=== PATIENT | female | born 1960 | race Caucasian/White ===

== ENCOUNTER 2019-01-21 13:42 | Emergency (ER) | payer MEDICARE, MEDICAID ==
[~2019-01-21] VITALS: Ht 165.1 cm; Wt 59.0 kg
[~2019-01-21 13:42] MED LIST: ASPI-1265 PO; CHOL400T32 PO; CLON-529 PO; DOCU250C15 PO; DULO-31 PO; IBUP-1984 PO; LEVO175T2 PO; METH-360 PO; OSC500T PO; TOPI25TA15 PO; VITC500T PO
[2019-01-21 13:58] VITALS: BP 178/103
[2019-01-21] MEDS ORDERED: dexamethasone sod phosphate 10mg/ml inj IM STA (15:37)
[2019-01-21] MEDS ORDERED: traMADol 50MG tablet PO ONE (15:40)
[2019-01-21] MEDS ORDERED: TRAM50TA2 PO (15:42)
[2019-01-21] MEDS ORDERED: DEXA4TAB67 PO (15:42)
== END 2019-01-21 15:54 | disposition home or self-care (01) ==
LOC: ER 13:42
DX: M54.5 Low back pain (principal); G89.29 Other chronic pain; E03.9 Hypothyroidism, unspecified; Z79.899 Other long term (current) drug therapy; Z79.82 Long term (current) use of aspirin; Z88.2 Allergy status to sulfonamides; Z88.6 Allergy status to analgesic agent; Z98.890 Other specified postprocedural states; X58.XXXA Exposure to other specified factors, initial encounter; Y93.89 Activity, other specified; Y92.89 Other specified places as the place of occurrence of the external cause; Y99.0 Civilian activity done for income or pay
CPT/HCPCS: 72100; 96372; 99283; J1100